=== PATIENT | male | born 1945 | race Caucasian/White ===

== ENCOUNTER 2020-05-01 07:22 | Day surgery (SDC) | payer MEDICARE ==
[~2020-05-01 07:22] MED LIST: Lactated Ringers 1,000 ML IV SCH; Lidocaine 1%/Sod Bicarbonate in NS 8.4% 1 ML Syringe IDERM PRN; Sodium Chloride 0.9% 10 ML Syringe FLUSH PRN
--- NOTE | 2020-05-01 07:55 | PCM.PREANE ---
Preanesthetic Assessment - Procedure Proposed Procedure: Diagnostic EGD - Anesthesia/Transfusion/Family Hx Transfusion History: Prior Transfusion Without Reaction Intubation History: Unknown - Review of Systems General: No Symptoms Pulmonary: No Symptoms Cardiovascular: No Symptoms Gastrointestinal: No Symptoms Neurological: No Symptoms Other: Reports: None - Physical Assessment NPO Status Date: 04/30/20 NPO Status Time: 22:00 Vital Signs: Last Vital Signs Temp 96.8 F L 05/01/20 07:25 Pulse 50 L 05/01/20 07:25 Resp 16 05/01/20 07:25 BP 143/69 H 05/01/20 07:25 Pulse Ox 98 05/01/20 07:25 Height: 1.7 m Weight: 69.4 kg ASA Class: 3 Mental Status: Alert & Oriented x3 Airway Class: Mallampati = 3 Dentition: Reports: [place]arrach(s), Missing Tooth/Teeth Thyro-Mental Finger Breadths: 3 Mouth Opening Finger Breadths: 3 ROM/Head Extension: Full Lungs: Clear to Auscultation, Normal Respiratory Effort Cardiovascular: Regular Rate, Regular Rhythm - Allergies Allergies/Adverse Reactions: Allergies Allergy/AdvReac Type Severity Reaction Status Date / Time amoxicillin Allergy Rash Verified 04/30/20 12:37 cefdinir Allergy Diarrhea Verified 05/01/20 07:43 - Acknowledgements Anesthesia Type Planned: MAC Pt an Appropriate Candidate for the Planned Anesthesia: Yes Alternatives and Risks of Anesthesia Discussed w Pt/Guardian: Yes Pt/Guardian Understands and Agrees with Anesthesia Plan: Yes PreAnesthesia Questionnaire HEENT History: Reports: Allergic Rhinitis, Hard of Hearing, Otitis Media, Other (See Below) Other HEENT History: corneal abrasion, eye abrasion, eustachian tube dysfunction, candidasis of mouth, TMJ Cardiovascular History: Reports: Afib, Aneurysm, CAD, High Cholesterol, Hypertension, CT, Other (See Below) Other Cardiovascular History: bradycardia Respiratory History: Reports: Bronchitis, Recurrent, COPD, Pneumothorax, Other (See Below) Other Respiratory History: pleurisy, right pneumothorax, emyphesema Gastrointestinal History: Reports: Diverticulosis, GERD, Other (See Below) Other Gastrointestinal History: abdominal cramps 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 Musculoskeletal History: Reports: Back Pain, Chronic, Other (See Below) Other Musculoskeletal History: right rib fracture, clavicle fracture Neurological History: Reports: Other (See Below) Other Neuro History: anterior cervical lympadenopathy, syncope, spine pain Psychiatric History: Reports: Addiction, Other (See Below) Other Psychiatric History: etoh abuse- stopped drinking 1979 Endocrine/Metabolic History: Reports: None Hematologic History: Reports: Anemia Immunologic History: Reports: None Oncologic (Cancer) History: Reports: None Other Dermatologic History: insect bite, oral lesion - Infectious Disease History Infectious Disease History: Reports: None - Past Surgical History HEENT Surgical History: Reports: Naso-Sinus Surgery, Tonsillectomy Cardiovascular Surgical History: Reports: Coronary Artery Bypass, Other (See Below) Other Cardiovascular Surgeries/Procedures: loop recorder Respiratory Surgical History: Reports: None GI Surgical History: Reports: Other (See Below) Other GI Surgeries/Procedures: partial colectomy Male Surgical History: Reports: Vasectomy Endocrine Surgical History: Reports: None Neurological Surgical History: Reports: None Musculoskeletal Surgical History: Reports: Shoulder Surgery Oncologic Surgical History: Reports: None Dermatological Surgical History: Reports: None - SUBSTANCE USE Smoking Status *Q: Current Every Day Smoker Recreational Drug Use History: No - HOME MEDS Home Medications: Home Meds Acetaminophen [Tylenol] 650 mg PO Q6H PRN 05/30/16 [History] Aspirin [Ecotrin EC] 81 mg PO DAILY 05/30/16 [History] Cranberry 400 mg PO DAILY 05/30/16 [History] Fluticasone Propionate [Flonase] 1 spray NASBOTH DAILY PRN 05/30/16 [History] Glucosam/Chondr/Collagn/Hyalur [Glucosamine & Chondroitin Cap] 1 tab PO DAILY 05/30/16 [History] Ibuprofen [Advil] 400 mg PO Q6HR PRN 05/30/16 [History] Multivitamin [Daily Jitendra] 1 each PO DAILY 05/30/16 [History] Nitroglycerin [Nitrostat] 0.4 mg SL ASDIRECTED PRN 05/30/16 [History] Psyllium with Sucrose [Metamucil] 1 each PO DAILY 05/30/16 [History] atorvaSTATin Calcium [Atorvastatin Calcium] 40 mg PO DAILY 05/30/16 [History] Albuterol/Ipratropium [DuoNeb 3.0-0.5 MG/3 ML] 1 dose NEB TID PRN 04/30/20 [History] Apixaban [Eliquis] 5 mg PO DAILY 04/30/20 [History] Cetirizine HCl [Zyrtec] 10 mg PO DAILY 04/30/20 [History] Metoprolol Succinate 25 mg PO DAILY 04/30/20 [History] Omeprazole Magnesium [Prilosec Otc] 20 mg PO DAILY 04/30/20 [History] traMADol [Ultram] 50 mg PO DAILY PRN 04/30/20 [History] - CURRENT (IN HOUSE) MEDS Current Meds: Current Medications Lactated Ringer's (Ringers, Lactated) 1,000 mls @ 125 mls/hr IV ASDIRECTED TRIPP Stop: 05/01/20 23:00 Lidocaine/Sodium Bicarbonate (Buffered Lidocaine 1% In Ns 8.4%) 0.25 ml IDERM ONETIME PRN PRN Reason: Prior to IV Start Stop: 05/01/20 18:00 Sodium Chloride (Saline Flush) 10 ml FLUSH ASDIRECTED PRN PRN Reason: Keep Vein Open Stop: 05/01/20 18:00
[2020-05-01] MEDS ORDERED: Lidocaine 1% 6 ML ONE (08:27)
[2020-05-01] MEDS ORDERED: Propofol 200 MG/20 ML SDV ONE (08:27)
--- NOTE | 2020-05-01 10:16 | PCM.PRNOTE ---
- Free Text/Narrative Note: Date: 05/01/2020 Procedure: diagnostic esophagogastroduodenoscopy Endoscopist: Frank Horowitz MD Findings: small to moderate size hiatal hernia. No duodenal or gastric pathology noted. No active esophagitis appreciated. Biopsies taken from incisura, distal esophagus. Vocal cords visualized, with normal appearance. Detailed Report: The patient was taken to the endoscopy suite and placed in left lateral decubitus position. Time out was performed and monitored sedation initiated. The endoscope was inserted into the mouth and advanced to the duodenum with ease. The duodenum appeared normal. The stomach appeared normal, except for a small sliding hiatal hernia noted on retroflexion. A biopsy of the incisura was obtained to rule out H pylori. The Z-line was well above the diaphragm. Biopsies were obtained above and below the apparent Z-line. No esophagitis was noted. There were no esophageal lesions on withdrawal, and the epiglottis and vocal cords appeared grossly normal. The scope was completely withdrawn. The patient tolerated the procedure well.
--- NOTE | 2020-05-01 10:32 | PCM48HPAN ---
Post Anesthesia Note - EVALUATION WITHIN 48HRS OF ANESTHETIC Vital Signs in Normal Range: Yes Patient Participated in Evaluation: Yes Respiratory Function Stable: Yes Airway Patent: Yes Cardiovascular Function Stable: Yes Hydration Status Stable: Yes Pain Control Satisfactory: Yes Nausea and Vomiting Control Satisfactory: Yes Mental Status Recovered: Yes Vital Signs: Last Vital Signs Temp 96.8 F L 05/01/20 07:25 Pulse 47 L 05/01/20 10:18 Resp 12 05/01/20 10:18 BP 134/62 05/01/20 10:18 Pulse Ox 99 05/01/20 10:18
[2020-05-01 10:52] VITALS: BP 144/72; PULSE 48
== END 2020-05-01 10:58 | disposition home or self-care (01) ==
LOC: JD.SDS 07:22
PROVIDERS: ATTEND Surgery
DX: K29.50 Unspecified chronic gastritis without bleeding (principal); K22.8 Other specified diseases of esophagus; I25.10 Atherosclerotic heart disease of native coronary artery without angina pectoris; J43.9 Emphysema, unspecified; I10 Essential (primary) hypertension; E78.00 Pure hypercholesterolemia, unspecified; Z88.0 Allergy status to penicillin; Z79.82 Long term (current) use of aspirin; Z79.899 Other long term (current) drug therapy; Z88.8 Allergy status to other drugs, medicaments and biological substances; Z87.891 Personal history of nicotine dependence
CPT/HCPCS: 43239; 88305; J2001; J2704; J7120; 00731

== ENCOUNTER 2024-12-29 06:47 | Day surgery (SDC) | payer MEDICARE ==
[~2024-12-29 06:47] MED LIST changes: -Lactated Ringers 1,000 ML IV SCH; +Lidocaine 1% 6 ML ONE; -Lidocaine 1%/Sod Bicarbonate in NS 8.4% 1 ML Syringe IDERM PRN; +Sodium Chloride 0.9% 10 ML Syringe FLUSH SCH; +propofoL 500 MG/50 ML 50 ML ONE
[2024-12-29] MEDS: Lactated Ringers 1,000 ML IV SCH (07:15)
[2024-12-29 10:05] VITALS: BP 127/85; PULSE 58
== END 2024-12-29 08:50 | disposition home or self-care (01) ==
LOC: JD.SDS 06:47
PROVIDERS: ATTEND Surgery
DX: Z12.11 Encounter for screening for malignant neoplasm of colon (principal); K22.70 Barrett's esophagus without dysplasia; K44.9 Diaphragmatic hernia without obstruction or gangrene; K57.30 Diverticulosis of large intestine without perforation or abscess without bleeding; I25.10 Atherosclerotic heart disease of native coronary artery without angina pectoris; I48.91 Unspecified atrial fibrillation; E78.00 Pure hypercholesterolemia, unspecified; I11.0 Hypertensive heart disease with heart failure; I50.9 Heart failure, unspecified; Z88.1 Allergy status to other antibiotic agents; Z88.8 Allergy status to other drugs, medicaments and biological substances; Z79.01 Long term (current) use of anticoagulants; Z79.899 Other long term (current) drug therapy; Z87.891 Personal history of nicotine dependence
CPT/HCPCS: 43239; G0121; J2003; J2704; J7120; 00813; 99100